=== PATIENT | female | born 1995 | race Caucasian/White ===

== ENCOUNTER 2021-11-10 06:56 | Inpatient (IN) | payer BC ==
[2021-11-10] MEDS ORDERED: Sodium Chloride 0.9% 10 ML Syringe FLUSH PRN (07:07)
[2021-11-10] MEDS ORDERED: Ondansetron 4 MG/2 ML SDV IVPUSH PRN (07:11)
[2021-11-10] MEDS ORDERED: Calcium Carbonate 500 MG Tab.Chew PO PRN (07:11)
[2021-11-10] MEDS ORDERED: Oxytocin/Lactated Ringers 10 UNIT/1,000 ML BAG IV SCH ×2 (07:15→15:04)
[2021-11-10] MEDS: Lactated Ringers 1,000 ML IV SCH ×3 (08:15→11:41)
[2021-11-10] MEDS ORDERED: Sodium Chloride 0.9% 10 ML Syringe FLUSH SCH (09:00)
[2021-11-10] MEDS ORDERED: Bupivacaine/fentaNYL/NS 100 ML Bag EPIDUR PRN (10:04)
[2021-11-10] MEDS ORDERED: ePHEDrine 50 MG/ML SDV IVPUSH PRN (10:04)
[2021-11-10] MEDS ORDERED: diphenhydrAMINE 50 MG/ML SDV IVPUSH PRN (10:04)
[2021-11-10] MEDS ORDERED: fentaNYL 100 MCG/2 ML SDV EPIDUR PRN (10:04)
[2021-11-10] MEDS ORDERED: Witch Hazel Medicated Pads 40/Jar TOP PRN (15:04)
[2021-11-10] MEDS ORDERED: Measles, Mumps & Rubella Vaccine 0.5 ML SDV SUBCUT ONE (15:04)
[2021-11-10] MEDS ORDERED: Benzocaine/Menthol 20%-0.5% Spray 78 GM Cannister TOP PRN (15:04)
[2021-11-10] MEDS ORDERED: Acetaminophen 325 MG Tab PO PRN (15:04)
[2021-11-10] MEDS ORDERED: Docusate Sodium 100 MG Cap PO PRN (15:04)
[2021-11-10] MEDS ORDERED: Hydrocortisone Acetate 25 MG Supp RECTAL PRN (15:04)
[2021-11-10] MEDS: Ibuprofen 600 MG Tab PO PRN ×2 (16:41→23:06)
[2021-11-10] MEDS ORDERED: Magnesium Hydroxide 400 MG/5 ML Susp 30 ML Cup PO PRN (21:00)
[2021-11-11] MEDS: Ibuprofen 600 MG Tab PO PRN ×2 (06:40→14:26)
[2021-11-11] MEDS ORDERED: Prenatal Multivitamin with Calcium/Folic Acid/Iron Tab PO SCH (09:00)
[2021-11-11] MEDS ORDERED: Acetaminophen/oxyCODONE 325-5 MG Tab PO ONE (11:38)
== END 2021-11-11 17:18 | disposition home or self-care (01) | DRG 560 ==
LOC: JD.OB 06:56 → OBSVTOIN 14:44 → JD.OB 15:08
PROVIDERS: ADMIT Obstetrics & Gynecology; ATTEND Obstetrics & Gynecology
PROC: 10E0XZZ Delivery of Products of Conception, External Approach (ICD-10-PCS; principal; 2021-11-10)
PROC: 0HQ9XZZ Repair Perineum Skin, External Approach (ICD-10-PCS; 2021-11-10)
PROC: 10907ZC Drainage of Amniotic Fluid, Therapeutic from Products of Conception, Via Natural or Artificial Opening (ICD-10-PCS; 2021-11-10)
PROC: 3E0R3BZ Introduction of Anesthetic Agent into Spinal Canal, Percutaneous Approach (ICD-10-PCS; 2021-11-10)
DX: O69.1XX0 Labor and delivery complicated by cord around neck, with compression, not applicable or unspecified (principal); Z3A.39 39 weeks gestation of pregnancy; Z37.0 Single live birth; O76 Abnormality in fetal heart rate and rhythm complicating labor and delivery; Z20.822 Contact with and (suspected) exposure to COVID-19
CPT/HCPCS: 36415; 51702; 59025; 59409; 82947; 85025; 86592; A9270-GY; J2405; J2590; J3010; J7120; U0002

== ENCOUNTER 2023-06-16 06:51 | Inpatient (IN) | payer BC ==
[2023-06-16] MEDS ORDERED: Lidocaine 1% 50 ML MDV INJECT ONE (07:13)
[2023-06-16] MEDS ORDERED: Sodium Chloride 0.9% 10 ML Syringe FLUSH PRN (07:13)
[2023-06-16] MEDS ORDERED: Ondansetron 4 MG/2 ML SDV IVPUSH PRN (07:13)
[2023-06-16] MEDS ORDERED: Nalbuphine 10 MG/0.5 ML Syringe IVPUSH PRN (07:13)
[2023-06-16] MEDS ORDERED: Oxytocin/Lactated Ringers 10 UNIT/1,000 ML BAG IV SCH ×2 (07:15)
[2023-06-16 07:33] LABS: BASOPHILS PERCENT AUTO 0.3 % (0.0-1.0); EOSINOPHILS ABSOLUTE AUTO 0.1 K/mm3 (0.0-0.4); EOSINOPHILS PERCENT AUTO 0.6 % (0.0-6.0); HEMATOCRIT 36.3 % (37.0-47.0); HEMOGLOBIN 11.8 gm/dl (12.0-16.0); IMMATURE GRAN ABSOLUTE AUTO 0.05 K/mm3 (0.00-0.05); IMMATURE GRAN PERCENT AUTO 0.5 % (0.0-0.4); LYMPHOCYTES ABSOLUTE AUTO 2.2 K/mm3 (1.0-4.8); LYMPHOCYTES PERCENT AUTO 21.9 % (24.0-44.0); MEAN CORPUSCULAR HEMOGLOBIN 27.6 pg (28.0-32.0); MEAN CORPUSCULAR HGB CONC 32.5 g/dl (32.0-36.0); MEAN CORPUSCULAR VOLUME 84.8 fl (83.0-99.0); MEAN PLATELET VOLUME 10.1 fl (9.4-12.3); MONOCYTES ABSOLUTE AUTO 0.6 K/mm3 (0.0-0.8); MONOCYTES PERCENT AUTO 6.2 % (0.0-8.0); NEUTROPHILS ABSOLUTE AUTO 7.2 K/mm3 (1.8-7.7); NEUTROPHILS PERCENT AUTO 70.5 % (41.0-71.0); PLATELET COUNT,PLT 266 K/mm3 (150-400); RED BLOOD CELL COUNT 4.28 M/mm3 (4.10-5.30); WHITE BLOOD CELL COUNT,WBC 10.18 K/mm3 (3.9-11.3)
[2023-06-16] MEDS ORDERED: fentaNYL 100 MCG/2 ML SDV EPIDUR PRN (08:03)
[2023-06-16] MEDS ORDERED: Bupivacaine/fentaNYL/NS 100 ML Bag EPIDUR PRN (08:03)
[2023-06-16] MEDS ORDERED: diphenhydrAMINE 50 MG/ML SDV IVPUSH PRN (08:03)
[2023-06-16] MEDS ORDERED: ePHEDrine 50 MG/ML SDV IVPUSH PRN (08:03)
[2023-06-16] MEDS: Lactated Ringers 1,000 ML IV SCH ×3 (08:41→09:36)
[2023-06-16] MEDS ORDERED: Bupivacaine 0.25% 10 ML SDV ONE (09:00)
[2023-06-16] MEDS ORDERED: Sodium Chloride 0.9% 10 ML Syringe FLUSH SCH (09:00)
[2023-06-16] MEDS ORDERED: Benzocaine/Menthol 20%-0.5% Spray 78 GM Cannister TOP PRN (14:27)
[2023-06-16] MEDS ORDERED: Witch Hazel Medicated Pads 40/Jar TOP PRN (14:27)
[2023-06-16] MEDS: Ibuprofen 600 MG Tab PO PRN ×2 (16:32→23:00)
[2023-06-16] MEDS: Acetaminophen 325 MG Tab PO PRN (20:08)
[2023-06-17] MEDS: Acetaminophen 325 MG Tab PO PRN (02:19)
[2023-06-17] MEDS: Ibuprofen 600 MG Tab PO PRN (04:19)
[2023-06-17] MEDS ORDERED: Measles, Mumps & Rubella Vaccine 0.5 ML SDV SUBCUT ONE (08:24)
[2023-06-17 12:42] VITALS: BP 107/66; PULSE 60
== END 2023-06-17 12:43 | disposition home or self-care (01) | DRG 560 ==
LOC: JD.OB 06:51 → INTOOBSV 07:13 → OBSVTOIN 07:13 → JD.OB 13:46 → OBSVTOIN 13:46 → JD.OB 13:47
PROVIDERS: ADMIT Obstetrics & Gynecology; ATTEND Obstetrics & Gynecology
PROC: 10E0XZZ Delivery of Products of Conception, External Approach (ICD-10-PCS; principal; 2023-06-16)
PROC: 10907ZC Drainage of Amniotic Fluid, Therapeutic from Products of Conception, Via Natural or Artificial Opening (ICD-10-PCS; 2023-06-16)
PROC: 3E033VJ Introduction of Other Hormone into Peripheral Vein, Percutaneous Approach (ICD-10-PCS; 2023-06-16)
PROC: 3E0R3BZ Introduction of Anesthetic Agent into Spinal Canal, Percutaneous Approach (ICD-10-PCS; 2023-06-16)
PROC: 00HU33Z Insertion of Infusion Device into Spinal Canal, Percutaneous Approach (ICD-10-PCS; 2023-06-16)
PROC: 3E0234Z Introduction of Serum, Toxoid and Vaccine into Muscle, Percutaneous Approach (ICD-10-PCS; 2023-06-16)
DX: O80 Encounter for full-term uncomplicated delivery (principal); Z37.0 Single live birth; Z23 Encounter for immunization; Z3A.39 39 weeks gestation of pregnancy
CPT/HCPCS: 01967; 36415; 51701; 51702; 59025; 59409; 85025; 86592; 90471; 90707; A9270-GY; J2590; J3010; J3490; J7120